=== PATIENT | female | born 1980 | race Caucasian/White ===

== ENCOUNTER → 2016-06-29 | Outpatient (CLI) | payer OTHER ==
[~2016-06-29] MED LIST: IBUP600T44 PO; OXYC-57 PO; PRENTAB26 PO; SYN175 PO
[2016-06-29 17:55] LABS: ALT/SGPT 19 U/L (12-78); AST/SGOT 14 U/L (15-37); BLOOD UREA NITROGEN 9 mg/dl (7-18); BUN/CREATININE RATIO 12.3 (10-20); CALCIUM 8.9 mg/dl (8.5-10.1); CARBON DIOXIDE 28 mmol/L (21-32); CHLORIDE 103 mmol/L (98-107); CREATININE 0.71 mg/dl (0.60-1.20); GLUCOSE 86 mg/dl (70-99); POTASSIUM 3.9 mmol/L (3.5-5.1); SODIUM 140 mmol/L (136-145)
[2016-06-29 18:03] LABS: BASO % 0.3 %; BASO ABS # 0.03 K/uL (0-0.2); COMPLETE YES; EOS % 1.6 %; HEMATOCRIT 39.4 % (37-47); IG% 0.1 %; LYMPH % 21.6 %; LYMPH ABS # 2.18 K/uL (1.2-3.4); MEAN CELL VOLUME 79.8 fL (80-100); MEAN CORPUSCULAR HEMOGLOBIN 26.3 pg (25-34); MEAN PLATELET VOLUME 9.7 fL (7.4-10.4); MONO % 3.9 %; NEUT % 72.5 %; PLATELET COUNT 307 K/uL (130-400); RED BLOOD COUNT 4.94 M/uL (4.2-5.4); WHITE BLOOD COUNT 10.11 K/uL (4.8-10.8)
[2016-06-29 18:04] LABS: ALB/GLOB RATIO 0.9 (0.9-2); ALKALINE PHOSPHATASE 58 U/L (45-117); CHOLESTEROL 252 mg/dl (0-200); CHOLESTEROL/HDL RATIO 2.4; HDL CHOLESTEROL 103 mg/dl; LDL CHOLESTEROL CALCULATED 122 mg/dl; TRIGLYCERIDES 134 mg/dl (0-150); VERY LOW DENSITY LIPOPROT CALC 27 mg/dl
== END | disposition home or self-care (01) ==
LOC: C.LABMFLN 11:38
PROVIDERS: ATTEND Physician Assistant
DX: Z00.00 Encounter for general adult medical examination without abnormal findings (principal); E03.9 Hypothyroidism, unspecified; E06.3 Autoimmune thyroiditis

== ENCOUNTER → 2017-02-23 | Outpatient (CLI) | payer OTHER | END | disposition home or self-care (01) | LOC: C.LABMFLN 09:00 | PROVIDERS: ATTEND Physician Assistant | DX: J06.9 Acute upper respiratory infection, unspecified (principal) ==

== ENCOUNTER 2017-03-26 13:44 | Emergency (ER) | payer OTHER ==
[~2017-03-26] VITALS: Ht 152.4 cm; Wt 78.0 kg
[2017-03-26 13:50] VITALS: Ht 152.4 cm; Wt 78.0 kg
[2017-03-26] MEDS ORDERED: OXYCODONE HCL IR 5 MG TAB (IMMEDIATE RELEASE) PO STA (14:06)
[2017-03-26] MEDS ORDERED: ALBUT/IPRATROP 3MG/0.5MG NEB 3 ML VIAL INH STA (14:06)
--- NOTE | 2017-03-26 14:07 | EMERGENCY ROOM VISIT NOTE ---
History Report prepared by Tylor: Rock Hogan Under the Supervision of: Dr. Nils Mora D.O. First contact with patient: 13:59 Chief Complaint: RIB PAIN Stated Complaint: LOWER RIGHT SIDE PAIN History of Present Illness The patient is a 36 year old female who presents to the Emergency Room with complaints of persistent right-sided rib pain that started this morning after coughing. She notes that she has had a cough for 6 weeks, and has been being treated for an upper respiratory infection with a Z-pack around 2 weeks ago. She says that she heard a loud pop this morning after coughing, and has had persistent right-sided rib pain ever since. The patient states that the pain wraps around to the right side of her back, and worsens with movement. She notes that she has been coughing a lot still, and is not aware of being exposed to any major illnesses recently. She states that during her illness, she had a high fever due to an ear infection. She adds that she is still congested. The patient denies any abdominal pain, eye redness or runny eyes. She says that she is up to date with her immunizations. Source of History: patient Onset: This morning Position: other (right ribs) Symptom Intensity: after coughing Quality: other (pain) Timing: other (persistent) Associated Symptoms: + cough, + back pain (right side), No abdominal pain Note: Associated symptoms: Congestion. Denies eye redness or runny eyes. Review of Systems See HPI for pertinent positives & negatives. A total of 10 systems reviewed and were otherwise negative. Past Medical & Surgical Medical Problems: (1) section (2) Hypothyroidism (3) Intrauterine (4) Kidney stone (5) PREVIOUS NOS * DO NOT USE * Family History No pertinent family history Social History Smoking Status: Never Smoker Smokeless Tobacco Use: No Alcohol Use: occasionally Housing Status: lives with family Occupation Status: employed Current/Historical Medications Scheduled Albuterol Hfa (Ventolin Hfa), 1 PUFF INH Q4 Levothyroxine Sodium (Synthroid), 175 MCG PO DAILY Lisinopril (Zestril), 20 MG PO DAILY Ondasetron Odt (Zofran Odt), 4 MG SL Q6H Scheduled PRN Benzonatate (Tessalon Perles), 100 MG PO Q8 PRN for Cough Oxycodone Immediate Rel Tab (Roxicodone Ir), 1-2 TAB PO Q4H PRN for Severe Pain Allergies Coded Allergies: No Known Allergies (Verified , NONE, 03/26/17) Physical Exam Vital Signs Date Time Temp Pulse Resp B/P (MAP) Pulse Ox O2 Delivery O2 Flow Rate FiO2 03/26/17 15:12 36.8 106 18 192/90 98 03/26/17 13:50 36.8 106 18 192/90 98 Room Air Physical Exam GENERAL: Patient is awake, alert, somewhat anxious appearing and uncomfortable. EYES: The conjunctivae are clear. The pupils are round and reactive. EARS, NOSE, MOUTH AND THROAT: The nose is without any evidence of any deformity. Mucous membranes are moist tongue is midline NECK: The neck is nontender and supple. RESPIRATORY: Splinting respirations noted. Diminished breath sounds noted in the right base. CARDIOVASCULAR: Regular rate and rhythm noted there no murmurs rubs or gallops normal S1 normal S2 GASTROINTESTINAL: The abdomen is soft. Bowel sounds are present in all quadrants. Abdomen is nontender MUSCULOSKELETAL/EXTREMITIES: There is no evidence of gross deformity full range of motion is noted in the hips and shoulders. Tenderness over the right posterior rib cage. This was improved with splinting. SKIN: There is no obvious evidence of any rash. There are no petechiae, pallor or cyanosis noted. NEUROLOGIC: Patient is awake alert and oriented x3. Medical Decision & Procedures ER Provider Diagnostic Interpretation: X-ray results as stated below per interpretation by me and the radiologist. R RIBS UNILATERAL MIN 2 VIEWS CLINICAL HISTORY: roght rib [ain pain COMPARISON STUDY: None FINDINGS: Negative study IMPRESSION: Negative study The above report was generated using voice recognition software. It may contain grammatical, syntax or spelling errors. Electronically signed by: Salinas Hernandez M.D. 03/26/2017 2:47 PM Dictated Date/Time: 03/26/2017 2:45 PM Medications Administered Medications (Trade) Dose Ordered Sig/Mary Route Start Time Stop Time Status Last Admin Dose Admin Albuterol/ Ipratropium (Duoneb) 3 ml NOW STAT INH 03/26/17 14:06 03/26/17 14:07 DC 03/26/17 14:14 3 ML Oxycodone HCl (Roxicodone Immediate Rel Tab) 5 mg NOW STAT PO 03/26/17 14:06 03/26/17 14:07 DC 03/26/17 14:19 5 MG Ondansetron HCl (Zofran Odt) 4 mg STK-MED ONCE .ROUTE 03/26/17 14:18 03/26/17 14:19 DC 03/26/17 14:20 4 MG ED Course 1401: The patient was evaluated in room C1B. A complete history and physical examination were performed. 1406: Ordered Roxicodone Immediate Rel Tab 5 mg PO, Duoneb 3 ml INH. 1452: Upon reevaluation, the patient is resting. I discussed the results and treatment plan with her. She verbalized agreement of the treatment plan. She was discharged home. Medical Decision Differential diagnosis: Etiologies such as fracture, dislocation, intra-abdominal, pneumothorax, intrathoracic , intracranial, neurologic, as well as other traumatic pathologies were entertained. Nursing notes reviewed. The patient is a 36-year-old female who presented to the emergency department for an evaluation of right posterior rib pain. The patient has had an upper respiratory tract infection for the last few weeks. She has been treated with a Z-Remigio. She states that she started coughing today and coughed so hard that she felt a pain in her right posterior ribs. Clinically this appears to be consistent with a clinical rib fracture. The patient was treated with pain medication in the emergency department. I discussed the patient's radiographic studies with her. She was encouraged to rest and avoid any strenuous today. She was also encouraged to continue all medications as prescribed and call her family doctor to schedule a follow-up appointment. Otherwise she was encouraged to return to the emergency department immediately if symptoms change worsen or the need arises. Medication Reconcilliation Current Medication List: was personally reviewed by me Blood Pressure Screening Patient's blood pressure: Elevated blood pressure Blood pressure disposition: Elevated BP felt to be situational Impression Primary Impression: Rib fracture Additional Impression: URI (upper respiratory infection) Scribe Attestation The scribe's documentation has been prepared under my direction and personally reviewed by me in its entirety. I confirm that the note above accurately reflects all work, treatment, procedures, and medical decision making performed by me. Departure Information Dispostion Home / Self-Care Prescriptions Benzonatate (Tessalon Perles) 100 Mg Cap 100 MG PO Q8 Y for Cough, #25 CAP Prov: Nils Mora, DO 03/26/17 Albuterol Hfa (VENTOLIN HFA) 200 Puffs/08587 Mcg Aers 1 PUFF INH Q4, #1 INHALER Prov: Nils Mora, DO 03/26/17 Oxycodone Immediate Rel Tab (ROXICODONE IR) 5 Mg Tab 1-2 TAB PO Q4H Y for Severe Pain, #24 TAB Prov: Nils Mora, DO 03/26/17 Ondasetron Odt (ZOFRAN ODT) 4 Mg Tab 4 MG SL Q6H for Nausea, #20 TAB Prov: Nils Mora, DO 03/26/17 Referrals Deanne Cuevas (PCP) Forms HOME CARE DOCUMENTATION FORM, IMPORTANT VISIT INFORMATION, WORK / SCHOOL INSTRUCTIONS, Work Instructions Patient Instructions Fx Rib, My [facility] [employer] Additional Instructions Continue all medications as prescribed. Continue using Motrin and Tylenol as directed for pain. Call your family to schedule a follow-up appointment. Consider using a laxative if you're going to take the stronger pain medication. Problem Qualifiers Primary Impression: Rib fracture Encounter type: initial encounter Rib fracture type: single rib Fracture type: closed Laterality: right Qualified Codes: S22.31XA - Fracture of one rib, right side, initial encounter for closed fracture Additional Impression: URI (upper respiratory infection) URI type: unspecified URI Qualified Codes: J06.9 - Acute upper respiratory infection, unspecified
[2017-03-26] MEDS ORDERED: ONDANSETRON 4MG OD TAB ONE (14:18)
--- NOTE | 2017-03-26 14:49 | DIAGNOSTIC IMAGING REPORT ---
R RIBS UNILATERAL MIN 2 VIEWS CLINICAL HISTORY: roght rib [ain pain COMPARISON STUDY: None FINDINGS: Negative study IMPRESSION: Negative study The above report was generated using voice recognition software. It may contain grammatical, syntax or spelling errors. Electronically signed by: Salinas Hernandez M.D. 03/26/2017 2:47 PM Dictated Date/Time: 03/26/2017 2:45 PM
[2017-03-26] MEDS ORDERED: ONDA4TAB10 SL (14:53)
[2017-03-26] MEDS ORDERED: OXYC1TAB3 PO (14:53)
[2017-03-26] MEDS ORDERED: VNTHFA/IN INH (14:54)
[2017-03-26] MEDS ORDERED: LISI-725 PO (14:57)
[2017-03-26] MEDS ORDERED: LEVO175T PO (14:57)
[2017-03-26] MEDS ORDERED: BENZ100C84 PO (15:09)
[2017-03-26 15:12] VITALS: BP 192/90; PULSE 106; TEMP 36.8; O2SAT 98
== END 2017-03-26 15:13 | disposition home or self-care (01) ==
LOC: C.EDB 13:46 → C.EDC 15:13
DX: S22.31XA Fracture of one rib, right side, initial encounter for closed fracture (principal); X58.XXXA Exposure to other specified factors, initial encounter; J06.9 Acute upper respiratory infection, unspecified; E03.9 Hypothyroidism, unspecified

== ENCOUNTER → 2017-04-05 | Outpatient (CLI) | payer OTHER ==
[~2017-04-05] MED LIST changes: +BENZ100C84 PO; -IBUP600T44 PO; +LEVO175T PO; +LISI-725 PO; +ONDA4TAB10 SL; -OXYC-57 PO; +OXYC1TAB3 PO; -PRENTAB26 PO; -SYN175 PO; +VNTHFA/IN INH
== END | disposition home or self-care (01) ==
LOC: C.LABMFLN 08:16
PROVIDERS: ATTEND Physician Assistant
DX: E03.9 Hypothyroidism, unspecified (principal)